=== PATIENT | male | born 1950 | race Caucasian/White ===

== ENCOUNTER → 2018-02-01 | Outpatient (REF) | payer BC, MEDICARE, SELFPAY | LOC: M LAB REF 12:20 | DX: B37.84 Candidal otitis externa (principal) | CPT/HCPCS: 87186 ==

== ENCOUNTER → 2018-05-18 | Outpatient (REF) | payer MEDICARE ==
[2018-05-18 12:42] LABS: APPEARANCE, URINE CLOUDY (CLEAR); BACTERIA, URINE AUTO NEGATIVE (NEGATIVE); BILIRUBIN, URINE AUTO NEGATIVE (NEGATIVE); BLOOD, URINE BLOOD NEGATIVE (NEGATIVE); COLOR, URINE AMBER (YELLOW); GLUCOSE, URINE (UA) AUTO NEGATIVE (NEGATIVE); KETONE, URINE AUTO NEGATIVE (NEGATIVE); LEUKOCYTE ESTERASE, URINE AUTO NEGATIVE (NEGATIVE); NITRITE, URINE AUTO NEGATIVE (NEGATIVE); PROTEIN, URINE AUTO NEGATIVE (NEGATIVE); RBC, URINE AUTO 3 /HPF (0-3); SPECIFIC GRAVITY URINE AUTO 1.018 (1.002-1.035); SQUAMOUS EPITHELIAL CELL UR AU 0 /HPF (0-6); UROBILINOGEN, URINE AUTO 0.2 mg/dL (0.0-2.0); WBC, URINE AUTO 0 /HPF (0-3)
== END ==
LOC: M LAB REF 12:18
DX: Z01.818 Encounter for other preprocedural examination (principal); M54.9 Dorsalgia, unspecified
CPT/HCPCS: 81001

== ENCOUNTER → 2018-06-15 | Outpatient (CLI) | payer MEDICARE | LOC: M SLEEP HO 10:59 | DX: G47.33 Obstructive sleep apnea (adult) (pediatric) (principal); R06.83 Snoring | CPT/HCPCS: G0399 ==

== ENCOUNTER → 2019-04-09 | Outpatient (CLI) | payer MEDICARE ==
--- NOTE | 2019-04-12 14:16 | SLEEPCENT ---
DATE OF PROCEDURE: 04/09/2019 ORDERED BY: Bibiana Hagen NP Nocturnal polysomnography was performed for evaluation of sleep physiology in this patient with history of excessive somnolence and nonrestorative sleep who has comorbidities of hypertension and acid reflux disease. 8 hours of data were reviewed. There were 394 minutes of sleep identified. Sleep latency was normal at 8.5 minutes. Rapid eye movement (REM) latency was short at 50.5 minutes. Sleep architecture was fairly well-preserved with five REM cycles. There was a period of wake between 1:15 and 2:15 resulting in reduced sleep efficiency of 82.8%. The patient's electrocardiogram showed sinus rhythm with PVCs. Average heart rate 60 beats per minute. Electroencephalogram (EEG) showed normal waveforms for awake and sleep stages. There were 170 respiratory events identified of 10 seconds in duration or greater for an apnea-hypopnea index of 25.9. The events were primarily obstructive, though 34 mixed and central apneas were scored. The events were not exclusive to sleep stage nor body posture. Arousals from respiratory events occurred seven times per hour, and oxygen desaturations were seen into the 80s. There was some limb activity but arousals from limb events were few. Snoring was noted over the course of the entire study. IMPRESSION: Obstructive sleep apnea syndrome (G47.33). Apnea-hypopnea index 25.9. RECOMMENDATIONS: The patient should be encouraged to return to sleep disorder center for pressure therapy. In the interim, alcohol and sedative avoidance should be practiced and caution exercised during operation of motor vehicles. MTDD
== END ==
LOC: M SLEEP 19:30
PROVIDERS: ATTEND Nurse Practitioner Family
DX: G47.33 Obstructive sleep apnea (adult) (pediatric) (principal)

== ENCOUNTER → 2019-04-23 | Outpatient (CLI) | payer MEDICARE ==
--- NOTE | 2019-04-25 10:02 | SLEEPCENT ---
DATE OF STUDY: 04/23/2019 ORDERED BY: Bibiana Hagen Nocturnal polysomnography was performed for the titration of pressure therapy in this patient with obstructive sleep apnea syndrome and apnea-hypopnea index of 25.9. For testing, the patient was fit with a ResMed Mirage FX nasal mask of standard size and 4 cm of water pressure were applied to the circuit and the lights were extinguished. 7 hours and 32 minutes of data were reviewed. There were 413 minutes of sleep identified. Sleep latency was short at 5.5 minutes. Rapid eye movement (REM) latency was short at 69 minutes. Sleep architecture was good with 4 REM cycles and no fragmentation. Overall sleep efficiency was 92.5%. The patient's electrocardiogram showed a sinus rhythm with small complexes. Average heart rate 65 beats per minute. Electroencephalogram (EEG) showed normal waveforms for awake and sleep. Respiratory events were fully palliated with C-PAP at a pressure of +6. There was some limb activity noted over the early portion of the study, but arousals were only 1.3 times per hour. IMPRESSION: Obstructive sleep apnea syndrome (G47.33). RECOMMENDATION: Nightly use of pressure therapy at 5 cm of water.
== END ==
LOC: M SLEEP 19:30
PROVIDERS: ATTEND Nurse Practitioner Family
DX: G47.33 Obstructive sleep apnea (adult) (pediatric) (principal)

== ENCOUNTER 2019-09-12 14:51 | Emergency (ER) | payer MEDICARE ==
[2019-09-12] MEDS: fentaNYL 100 MCG/2 ML INJECTION (J3010) IV ONE ×2 (14:30→15:25)
[2019-09-12] MEDS ORDERED: fentaNYL 100 MCG/2 ML INJECTION (J3010) As Ordered ONE (15:21)
[2019-09-12] MEDS: diazePAM 10 MG/2 ML INJ (J3360) IV PRN ×2 (15:38→16:18)
[2019-09-12 15:40] LABS: BASO # 0.1 10^3/uL (0.0-0.2); BASO % 0.5 % (0.0-1.0); EOS # 0.4 10^3/uL (0.0-0.5); EOS % 2.6 % (0.0-3.0); HEMATOCRIT 39.2 % (42.0-52.0); HEMOGLOBIN 13.8 g/dl (13.5-17.5); LYMPH # 2.1 10^3/uL (1.5-5.0); LYMPH % 13.9 % (24.0-44.0); MEAN CORPUSCULAR HEMOGLOBIN 34.1 pg (27.0-33.0); MEAN CORPUSCULAR HGB CONC 35.2 g/dl (32.0-36.5); MEAN CORPUSCULAR VOLUME 96.8 fl (80.0-96.0); MONO % 6.4 % (0.0-5.0); NEUTROPHILS # 11.6 10^3/uL (1.5-8.5); NEUTROPHILS % 76.1 % (36.0-66.0); PLATELET COUNT, AUTOMATED 278 10^3/uL (150-450); RED BLOOD COUNT 4.05 10^6/uL (4.30-6.10); WHITE BLOOD COUNT 15.3 10^3/uL (4.0-10.0)
[2019-09-12] MEDS ORDERED: FLUTISP (15:59)
[2019-09-12] MEDS ORDERED: LEVOTAB10 PO (15:59)
[2019-09-12] MEDS ORDERED: OMEP-221 PO (15:59)
[2019-09-12] MEDS ORDERED: GABA-843 PO (15:59)
[2019-09-12] MEDS ORDERED: TRAZ-252 PO (15:59)
[2019-09-12] MEDS ORDERED: MELO7.5T35 PO (15:59)
[2019-09-12] MEDS ORDERED: LISI-538 PO (15:59)
[2019-09-12] MEDS ORDERED: BUPR150T3 PO (15:59)
[2019-09-12] MEDS ORDERED: SIMV40TA20 PO (15:59)
--- NOTE | 2019-09-12 16:13 | REP ---
CT brain without contrast: History: Syncope. Findings: Digital preliminary beverage host radiograph is unremarkable. Bone window settings show no evidence of skull fracture or bony destructive lesion. There are mucosal changes affecting the ethmoid and sphenoid sinuses bilaterally. No intraorbital abnormality is appreciated. On soft tissue window settings, there is no evidence of intracranial hemorrhage. No mass, infarction, extra-axial fluid collection, or midline shift is seen. Impression: Mucosal changes in the ethmoid and sphenoid paranasal sinuses. No acute intracranial abnormality. Electronically Signed by Dedrick Moyer MD 09/12/2019 04:53 P
[2019-09-12 16:14] LABS: BLOOD UREA NITROGEN 19 MG/DL (7-18); CALCIUM LEVEL 8.7 MG/DL (8.8-10.2); CARBON DIOXIDE LEVEL 25 MEQ/L (21-32); CHLORIDE LEVEL 106 MEQ/L (98-107); CK-MB VALUE MASS 1.9 NG/ML (<3.6); CPK CREATINE PHOSPHOKINASE 120 U/L (39-308); CREATININE FOR GFR 1.05 MG/DL (0.70-1.30); GLOMERULAR FILTRATION RATE > 60.0 (>49); GLUCOSE, FASTING 103 MG/DL (70-100); MB/CK RELATIVE INDEX 1.58 (< OR =4); POTASSIUM SERUM 4.8 MEQ/L (3.5-5.1); SODIUM LEVEL 138 MEQ/L (136-145); TROPONIN I < 0.02 NG/ML (< 0.10)
--- NOTE | 2019-09-12 16:15 | REP ---
CT study of the cervical spine without contrast: History: Syncope. Technique: Helical scanning is acquired and overlapping 2 mm high resolution axial images were generated and reviewed at bone and soft tissue window settings. Coronal and sagittal multiplanar re-formations images are generated. CT findings: There is no evidence of cervical spine element fracture. No skull base fracture is seen. Cervical vertebral body heights are preserved. Alignment is normal. Facet joints are normally aligned bilaterally at each cervical level on multiplanar re-formations images. There is no evidence of intraspinal or paraspinal hematoma. No extra vertebral abnormality is seen. There are advanced degenerative spondylosis changes throughout the cervical spine. Degenerative disc disease changes are most pronounced at C3-4 through C6-7. There are prominent anterior and posterior osteophytes associated with these levels. Straightening is seen. There are moderate osteoarthritic facet hypertrophy changes in the mid cervical spine as well. Posterior osteophytic ridging is seen at each of these disc levels. There is central canal stenosis is C5-6 due to posterior osteophytic ridging and disc bulging. Bilateral uncovertebral spurring is seen right greater than left at C5-6. Right-sided neural foraminal narrowing is seen at C6-7. Canal size is borderline at C4-5. There is left-sided uncovertebral spurring narrowing the left neural foramen at C4-5. Mild bilateral uncovertebral spurring is seen at C3-4. Impression: Advanced degenerative spondylosis changes with multiple areas of neural foraminal narrowing. Mild central canal stenosis at C5-6. Otherwise negative. CT study of the cervical spine without contrast. No fracture seen. Electronically Signed by Dedrick Moyer MD 09/12/2019 04:53 P
[2019-09-12] MEDS: fentaNYL 100 MCG/2 ML INJECTION (J3010) IV PRN ×2 (16:50→18:42)
[2019-09-12 18:42] VITALS: BP 174/102
--- NOTE | 2019-09-12 21:00 | ECGEPIP ---
[facility] - ED Test Date: 2019-09-12 Pat Name: PERNELL ARGUETA Department: Room: - Gender: Male Assistant Professor Of Education: JAsher : 1950 Requested By: MARINO Bell Order Number: [id number] Reading MD: Anna Marie Hancock Measurements Intervals [place] Rate: 71 P: 36 NC: 175 QRS: -39 QRSD: 136 T: 138 QT: 393 QTc: 429 Interpretive Statements SINUS RHYTHM MARKED LEFT AXIS DEVIATION LEFT BUNDLE BRANCH BLOCK NO PRIOR Electronically Signed on 09-12-2019 21:00:02 EDT by Anna Marie Hancock
== END 2019-09-12 18:48 | disposition short-term general hospital (02) ==
LOC: EDBD 14:51 → M ED 14:51
DX: S14.109A Unspecified injury at unspecified level of cervical spinal cord, initial encounter (principal); W01.0XXA Fall on same level from slipping, tripping and stumbling without subsequent striking against object, initial encounter; Y92.89 Other specified places as the place of occurrence of the external cause; Y93.9 Activity, unspecified; Y99.0 Civilian activity done for income or pay; I10 Essential (primary) hypertension; R55 Syncope and collapse
CPT/HCPCS: 70450; 72125; 80048; 82550; 82553; 84443; 84484; 85025; 93005; 93041; 94760; 96374; 96375; 96376; 99285; J3010; J3360

== ENCOUNTER → 2019-11-01 | Outpatient (CLI) | payer MEDICARE ==
[~2019-11-01] MED LIST: BUPR150T3 PO; FLUTISP; GABA-843 PO; LEVOTAB10 PO; LISI-538 PO; MELO7.5T35 PO; OMEP-221 PO; SIMV40TA20 PO; TRAZ-252 PO
--- NOTE | 2019-11-01 14:51 | REP ---
Left lower extremity Duplex Doppler venous ultrasound: Real time compression and duplex Doppler interrogation of the left lower extremity deep venous system is performed. The left common femoral, superficial femoral and popliteal veins are fully compressible with transducer pressure and demonstrate normal spontaneous and phasic flow, without evidence of deep venous thrombosis. Impression: No evidence of deep venous thrombosis of the left lower extremity femoral popliteal venous system. A medial popliteal cyst measures 5.5 x 1.4 x 3.0 cm. Electronically Signed by Huber Valdovinos MD 11/01/2019 02:42 P
== END ==
LOC: M RAD 13:46
PROVIDERS: ATTEND Family Medicine
DX: R60.0 Localized edema (principal); M71.22 Synovial cyst of popliteal space [Baker], left knee